=== PATIENT | female | born 1975 | race Caucasian/White ===

== ENCOUNTER → 2017-07-23 | Outpatient (CLI) | payer BC ==
--- NOTE | 2017-07-25 11:28 | MAM ---
EXAM DESCRIPTION: 3D Screening BILATERAL CLINICAL HISTORY: 42 yearsFemaleSCREENING no complaints. No family history of breast cancer. Postmenopausal. No HRT. Bilateral saline implant augmentation. COMPARISON: None. No prior reports available. TECHNIQUE: Bilateral digital screening. CC and MLO projection full-field, 2-D images. Bilateral Hardy implant displacement images, CC and MLO full-field projections, 3-D tomosynthesis. FINDINGS: The breast parenchymal density pattern is: Heterogeneously dense breast tissue, which may obscure small masses. Bilateral saline implants are subpectoral. Implant capsules intact where seen. No focal, stellate mass or density no focal asymmetry, and no suspicious microcalcifications bilaterally. IMPRESSION: BI-RADS CATEGORY: 2 - BENIGN FINDINGS. FOLLOW UP: Routine digital bilateral screening, one year interval from June 2017. Written communication explaining the IMPRESSION and follow-up, will be mailed to the patient and referring health care provider. According to the [employer], yearly mammograms are recommended starting at age 40 and continuing as long as a woman is in good health. Any breast change noted on a breast self-exam should be reported promptly to the patient's healthcare provider. Breast MRI is recommended for women with an approximately 20-25% or greater lifetime risk of breast cancer, including women with a strong family history of breast or ovarian cancer and women who have been treated for Hodgkin's disease. A negative mammographic report should not delay tissue diagnosis in patients with significant clinical history or physical findings. Extremely dense breast tissue limits the sensitivity of digital mammography. Electronically signed by: Merrill Montemayor MD 07/25/2017 11:27 AM CDT
== END ==
LOC: MAMMO 12:09
PROVIDERS: ATTEND Obstetrics & Gynecology
DX: Z12.31 Encounter for screening mammogram for malignant neoplasm of breast (principal)
CPT/HCPCS: 77063; G0202